=== PATIENT | male | born 1960 | race Caucasian/White ===

== ENCOUNTER 2017-02-10 12:18 | Inpatient (IN) | payer OTHER ==
[2017-02-10 12:53] VITALS: BMI 16.7
--- NOTE | 2017-02-10 14:04 | HP ---
COWS - Scale Resting Pulse: 0= [place] 80 or Below Sweatin= Chills/Flushing Restless Observation: 1= Difficult to Sit Still Pupil Size: 1= Pupils >than Normal Bone or Joint Aches: 2= Severe Diffuse Aches Runny Nose/ Eye Tearin= Runny Nose/Eyes GI Upset > 30mins: 2= Nausea/Diarrhea Tremor Observation: 2= Slight Tremor Visible Yawning Observation: 1= 1-2x During Session Anxiety or Irritability: 2=Irritable/Anxious Goose Flesh Skin: 3=Piloerection COWS Score: 17 CIWA Score - CIWA Score Nausea/Vomitin Muscle Tremors: 3 Anxiety: 4-Mod. Anxious/Guarded Agitation: 1-Slight > Activity Paroxysmal Sweats: 3 Orientation: 0-Oriented Tacttile Disturbances: 2-Mild Itch/Numbness/Burn Auditory Disturbances: 0-None Visual Disturbances: 0-None Headache: 0-None Present CIWA-Ar Total Score: 18 Admission ROS BHS - HPI Chief Complaint: "I want to stop using Xanax, Alcohol, and Heroin. They are destroying me." Pt. is here to Detox from Alcohol, Xanax, and Heroin. Allergies/Adverse Reactions: Allergies Allergy/AdvReac Type Severity Reaction Status Date / Time No Known Drug Allergies Allergy Unknown Verified 07/02/13 16:15 lasagna Allergy Severe Vomiting Uncoded 07/02/13 14:08 NKDA Allergy Uncoded 07/02/13 14:08 History of Present Illness: Pt. is a 56 YO male here to Detox from Alcohol, Xanax, and Heroin. Pt. has had several previous Detox admissions at [facility]. Longest period of sobriety: approx. 2 weeks (11/2016). Exam Limitations: Intoxication - Ebola screening Have you traveled outside of the country in the last 21 days: No Have you had contact with anyone from an Ebola affected area: No Have you been sick,other than usual withdrawal symptoms: No Do you have a fever: No - Review of Systems Constitutional: Chills, Diaphoresis, Fever, Loss of Appetite, Malaise, Night Sweats, Changes in sleep (Takes Seroquel.), Unintentional Wgt. Loss (Lost approx. 40 lbs over last 4 months.) EENT: reports: Nose Congestion, Sinus Pressure, Other (Upper Denture.) Respiratory: reports: SOB with Exertion, Productive cough Cardiac: reports: Palpitations GI: reports: Diarrhea, Nausea, Poor Appetite, Indigestion, Abdominal cramping : reports: No Symptoms Reported Musculoskeletal: reports: Back Pain, Neck Pain Integumentary: reports: Other (Swelling in Left arm where he injects.) Neuro: reports: Headache, Tremors Endocrine: reports: No Symptoms Reported Hematology: reports: No Symptoms Reported Psychiatric: reports: Judgement Intact, Mood/Affect Appropiate, Orientated x3, Anxious, Depressed Other Systems: Reviewed and Negative Patient History - Patient Medical History Hx Anemia: No Hx Asthma: No (Uses Albuterol Inhaler.) Hx Chronic Obstructive Pulmonary Disease (COPD): No Hx Cancer: No Hx Cardiac Disorders: No Hx Congestive Heart Failure: No Hx Hypertension: No Hx Hypercholesterolemia: No Hx Pacemaker: No HX Cerebrovascular Accident: No Hx Seizures: No Hx Dementia: No Hx Diabetes: No Hx Gastrointestinal Disorders: No Hx Liver Disease: No Hx Genitourinary Disorders: No Hx Sexually Transmitted Disorders: No Hx Renal Disease (ESRD): No Hx Thyroid Disease: No Hx Human Immunodeficiency Virus (HIV): No (NEGATIVE HX; Last Tested: approx. 6 months ago.) Hx Hepatitis C: Yes (Diagnosed approx. 3 years ago.) Hx Depression: Yes (On med.) Hx Suicide Attempt: Yes (1998 (Cut wrists, neck). PATINET DENIES CURRENT SI / HI.) Hx Bipolar Disorder: Yes (WITH PANIC ATTACKS) Hx Schizophrenia: No Other Medical History: DENIES. - Patient Surgical History Past Surgical History: No Hx Neurologic Surgery: No Hx Cataract Extraction: No Hx Cardiac Surgery: No Hx Lung Surgery: No Hx Breast Surgery: No Hx Breast Biopsy: No Hx Abdominal Surgery: No Hx Appendectomy: No Hx Cholecystectomy: No Hx Genitourinary Surgery: No Hx Section: No Hx Orthopedic Surgery: No Anesthesia Reaction: No - PPD History Previous Implant?: Yes Documented Results: Negative w/proof Implanted On Prior [facility] Admission?: Yes Date: 07/04/13 Results: 0 MM PPD to be Administered?: Yes - Reproductive History Patient is a Female of Child Bearing Age (11 -55 yrs old): No (PATIENT IS MALE.) - Smoking Cessation Smoking history: Current every day smoker Have you smoked in the past 12 months: Yes Aproximately how many cigarettes per day: 20 Cigars Per Day: 0 Hx Chewing Tobacco Use: No Initiated information on smoking cessation: Yes 'Breaking Loose' booklet given: 02/10/17 (GIVEN ON UNIT.) - Substance & Tx. History Hx Alcohol Use: Yes Hx Substance Use: Yes Substance Use Type: Alcohol, Heroin, Tranquilizers Hx Substance Use Treatment: Yes (Previous Detox admissions at [facility].) - Substances Abused Heroin Route: Injection Frequency: Daily Amount used: 5 bags/day Age of first use: 19 Date of Last Use: 02/09/17 Alprazolam (Xanax) Route: Oral Frequency: Daily Amount used: 2 mg BID Age of first use: 47 Date of Last Use: 02/09/17 Alcohol Route: Oral Frequency: Daily Amount used: 1 P[place]ODKA Age of first use: 19 Date of Last Use: 02/10/17 Family Disease History - Family Disease History Family Disease History: Respiratory: Mother (Asthma, .) Admission Physical Exam [facility] - Vital Signs Vital Signs: Vital Signs - 24 hr 02/10/17 12:46 Temperature 97.5 F L Pulse Rate 74 Respiratory 20 Rate Blood Pressure 104/65 - Physical General Appearance: Yes: No Apparent Distress, Nourished, Appropriately Dressed , Intoxicated, Thin, Tremorous, Anxious HEENTM: Yes: Hearing grossly Normal, Normocephalic, Normal Voice, ROGELIO, Pharynx Normal Respiratory: Yes: Chest Non-Tender, No Respiratory Distress, No Accessory Muscle Use, Wheezing Neck: Yes: No masses,lesions,Nodules, Supple, Trachea in good position Breast: Yes: Breast Exam Deferred Cardiology: Yes: Regular Rhythm, Regular Rate, S1, S2 Abdominal: Yes: Normal Bowel Sounds, Non Tender, Flat, Soft Genitourinary: Yes: Within Normal Limits Back: Yes: Decreased Range of Motion Musculoskeletal: Yes: Gait Steady, Back pain Extremities: Yes: Normal Range of Motion, Non-Tender, Tremors Neurological: Yes: Fully Oriented, Alert, Normal Mood/Affect, Normal Response Integumentary: Yes: Normal Color, Dry, Warm, Track Patel (Noted on Left Forearm , mild erythema and swelling noted.) Lymphatic: Yes: Within Normal Limits - Diagnostic (1) Alcohol dependence with uncomplicated withdrawal Current Visit: Yes Status: Acute (2) Opioid dependence with withdrawal Current Visit: Yes Status: Acute (3) Sedative, hypnotic or anxiolytic dependence with withdrawal, uncomplicated Current Visit: Yes Status: Acute (4) Nicotine dependence Current Visit: Yes Status: Chronic Qualifiers: Nicotine product type: cigarettes Substance use status: uncomplicated Qualified Code(s): F17.210 - Nicotine dependence, cigarettes, uncomplicated (5) Asthma Current Visit: Yes Status: Chronic Qualifiers: Asthma severity: mild intermittent Asthma complication type: uncomplicated Qualified Code(s): J45.20 - Mild intermittent asthma, uncomplicated (6) Abscess of left arm Current Visit: Yes Status: Acute (7) Depression Current Visit: Yes Status: Chronic Qualifiers: Depression Type: unspecified Qualified Code(s): F32.9 - Major depressive disorder, single episode, unspecified (8) Bipolar disorder Current Visit: Yes Status: Chronic Qualifiers: Active/Remission status: remission status unspecified Qualified Code (s): F31.9 - Bipolar disorder, unspecified (9) History of panic attacks Current Visit: Yes Status: Chronic Cleared for Admission BHS - Detox or Rehab [facility] Level of Care: Medically Managed Detox Regimen/Protocol: Methadone/Valium [facility] Breath Alcohol Content Breath Alcohol Content: 0.130 Urine Drug Screen - Results Drug Screen Negative: No Urine Drug Screen Results: OPI-Opiates, BZO-Benzodiazepines
[2017-02-10] MEDS ORDERED: diphenhydrAMINE HCL 50 MG CAPSULE PO PRN (14:49)
[2017-02-10] MEDS ORDERED: P-EPHED 60MG/TRIPROLIDI 2.5MG TABLET PO PRN (14:49)
[2017-02-10] MEDS ORDERED: MAGNESIUM HYDROX 2400MG/30ML ORAL SUSPENSION 30 ML CUP PO PRN (14:49)
[2017-02-10] MEDS ORDERED: ACETAMINOPHEN 325 MG TABLET (FP) PO PRN (14:49)
[2017-02-10] MEDS ORDERED: MENTHOL/PHENOL 1 EACH UD MM PRN (14:49)
[2017-02-10] MEDS ORDERED: MAG HYDROX/AL HYDROX/SIMETH 30 ML UNIT-DOSE CUP PO PRN (14:49)
[2017-02-10] MEDS ORDERED: METHADONE HCL 10 MG TABLET (FOR DETOX USE ONLY) PO ONE ×2 (14:49→23:00)
[2017-02-10] MEDS ORDERED: IBUPROFEN 400 MG TABLET (FP) PO PRN (14:49)
[2017-02-10] MEDS ORDERED: hydrOXYzine PAMOATE 50 MG CAPSULE (FP) PO PRN (14:49)
[2017-02-10] MEDS ORDERED: NICOTINE POLACRILEX 2 MG GUM BUC PRN (14:49)
[2017-02-10] MEDS ORDERED: LOPERAMIDE HCL 2 MG CAPSULE PO PRN (14:49)
[2017-02-10] MEDS ORDERED: diazePAM 5 MG TABLET PO ONE (14:49)
[2017-02-10] MEDS ORDERED: MAGNESIUM CITRATE 300 ML BOTTLE PO PRN (14:49)
[2017-02-10] MEDS: NICOTINE 21 MG/24 HOURS TOPICAL PATCH TD SCH (15:23)
[2017-02-10] MEDS: BACITRACIN 15 GM TUBE TOPICAL OINTMENT TP SCH (15:25)
[2017-02-10 19:10] LABS: URINE APPEARANCE CLEAR; URINE BILIRUBIN NEGATIVE (NEGATIVE); URINE BLOOD NEGATIVE (NEGATIVE); URINE COLOR COLORLESS; URINE GLUCOSE (UA) NEGATIVE (NEGATIVE); URINE KETONE NEGATIVE (NEGATIVE); URINE LEUK ESTERASE NEGATIVE (NEGATIVE); URINE NITRITE NEGATIVE (NEGATIVE); URINE PROTEIN NEGATIVE (NEGATIVE); URINE UROBILINOGEN NEGATIVE mg/dL (0.2-1.0)
[2017-02-10] MEDS: guaiFENesin/D-METHORPHAN HB 10 ML UNIT-DOSE CUPS PO PRN (20:56)
[2017-02-10] MEDS: ALBUTEROL SO4 6.7 GM HFA INHALER IH PRN (20:57)
[2017-02-10] MEDS: SULFAMETHOXAZOLE/TRIMETHOPRIM 800MG/160MG D.S. TABLET PO SCH (22:17)
[2017-02-10] MEDS: THIAMINE HCL 100 MG TABLET (FP) PO SCH (22:17)
[2017-02-10] MEDS: diazePAM 5 MG TABLET PO SCH (22:17)
[2017-02-11] MEDS: diazePAM 5 MG TABLET PO SCH ×3 (05:46→22:15)
--- NOTE | 2017-02-11 09:49 | CONSULT ---
[facility] Psychiatric Consult - Data Date of interview: 02/11/17 Admission source: [facility] Identifying data: Readmission to [facility] for this 56 y/o male seeking detox treatment on for heroin,cocaine,xanax,marijuana and alcohol dependence.Patient is ,a father of five,domiciled,unemployed and supported on SSI benefits. Substance Abuse History: Onset of substance abuse at age 16 for marijuana.Escalated to heroin + alcohol (vodka/beer) at age 19 and xanax at age 32.Daily use of substances.Patient smokes one pack of cigarettes daily since age 16.Last use 02/10/17. Medical History: Hepatitis C. Psychiatric History: Patient reports a history of two psychiatric hospitalizations " in my 20's ".Diagnosed with Bipolar Disorder and managed by psychiatrist Dr Pompa ([facility] in [facility]) with seroquel 400 mg po hs.Mr Hameed states that he is adherent to his OPD care.Last took seroquel prior to this [facility] visit.Patient endorses one suicide attempt in 1986 ( via hanging / saved by uncle). Physical/Sexual Abuse/Trauma History: Patient denies. Additional Comment: Urine Drug Screen Results: OPI-Opiates, BZO- Benzodiazepines.Noted. Mental Status Exam - Mental Status Exam Alert and Oriented to: Time, Place, Person Cognitive Function: Good Patient Appearance: Well Groomed Mood: Hopeful, Euthymic Affect: Appropriate, Normal Range Patient Behavior: Fatigued, Appropriate, Cooperative (well mannered,friendly) Speech Pattern: Clear, Appropriate Voice Loudness: Normal Thought Process: Goal Oriented Thought Disorder: Not Present Hallucinations: Denies Suicidal Ideation: Denies Homicidal Ideation: Denies Insight/Judgement: Poor Sleep: Poorly, Difficulty falling asleep Appetite: Good Muscle strength/Tone: Normal Gait/Station: Normal Psychiatric Findings - Problem List ([place] 1, 2,3) (1) Alcohol dependence with uncomplicated withdrawal Current Visit: Yes Status: Acute (2) Opioid dependence with withdrawal Current Visit: Yes Status: Acute (3) Sedative, hypnotic or anxiolytic dependence with withdrawal, uncomplicated Current Visit: Yes Status: Acute (4) Nicotine dependence Current Visit: Yes Status: Acute Qualifiers: Nicotine product type: cigarettes Substance use status: uncomplicated Qualified Code(s): F17.210 - Nicotine dependence, cigarettes, uncomplicated (5) Bipolar disorder Current Visit: Yes Status: Chronic Qualifiers: Active/Remission status: remission status unspecified Qualified Code (s): F31.9 - Bipolar disorder, unspecified (6) Asthma Current Visit: Yes Status: Chronic Qualifiers: Asthma severity: mild intermittent Asthma complication type: uncomplicated Qualified Code(s): J45.20 - Mild intermittent asthma, uncomplicated - Initial Treatment Plan Initial Treatment Plan: Psychoeducation.Detoxification.Recent pharmacy claims revisited : no data.Will restart seroquel at 200 mg po hs and titrate accordingly.Patient made aware of this strategy (cautious approach in view of potential for drug-drug interaction/oversedation).Side effects /benefits of seroquel are discussed with the patient.He is in agreement with this careplan.Observation.
[2017-02-11 09:52] LABS: MCH 31.4 pg (25.7-33.7); MCHC 32.6 g/dl (32.0-35.9); MEAN CELL VOLUME 96.6 fl (80-96); MEAN PLT VOLUME 7.7 fl (7.5-11.1); PLATELET COUNT 192 K/MM3 (134-434); RDW 14.9 % (11.9-15.9); WHITE BLOOD COUNT 16.2 K/mm3 (4.0-10.0)
[2017-02-11] MEDS ORDERED: METHADONE HCL 10 MG TABLET (FOR DETOX USE ONLY) PO SCH (10:00)
[2017-02-11 10:09] LABS: ALBUMIN 2.8 g/dl (3.4-5.0); ALK PHOS 91 U/L (45-117); ANION GAP 7 (8-16); BILIRUBIN,TOTAL 0.7 mg/dL (0.2-1.0); CALCIUM 8.7 mg/dL (8.5-10.1); CO2 25 mmol/L (21-32); CREATININE 0.9 mg/dL (0.7-1.3); GLUCOSE,RANDOM 98 mg/dL (74-106); SGOT/AST 18 U/L (15-37); SGPT/ALT 24 U/L (12-78); TOT PROT 6.3 g/dl (6.4-8.2)
[2017-02-11] MEDS: SULFAMETHOXAZOLE/TRIMETHOPRIM 800MG/160MG D.S. TABLET PO SCH ×2 (10:23→22:15)
[2017-02-11] MEDS: PRENATAL VITAMINS W/ FOLIC ACID TABLET (FP) PO SCH (10:24)
[2017-02-11] MEDS: NICOTINE 21 MG/24 HOURS TOPICAL PATCH TD SCH (10:26)
[2017-02-11] MEDS: diazePAM 5 MG TABLET PO PRN ×2 (10:27→17:11)
--- NOTE | 2017-02-11 10:49 | EKG ---
Test Reason : Blood Pressure : / mmHG Vent. Rate : 062 BPM Atrial Rate : 062 BPM P-R Int : 156 ms QRS Dur : 080 ms QT Int : 406 ms P-R-T Axes : 066 079 068 degrees QTc Int : 412 ms NORMAL SINUS RHYTHM NORMAL ECG NO PREVIOUS ECGS AVAILABLE Confirmed by HARJEET FLORES, ROSARIO ([id number]) on 02/11/2017 10:49:24 AM Referred By: Confirmed By:ROSARIO COSBY MD
[2017-02-11 11:11] LABS: SICKLE CELL SCREEN NEGATIVE (NEGATIVE)
[2017-02-11] MEDS ORDERED: ALBUTEROL SO4 2.5/IPRATROPIUM 0.5 INH SOL 3 ML VIAL.NEB. NEB PRN (11:51)
--- NOTE | 2017-02-11 11:57 | PN ---
[facility] CIWA - CIWA Score Nausea/Vomitin-Mild Nausea/No Vomiting Muscle Tremors: 3 Anxiety: 5 Agitation: 3 Paroxysmal Sweats: 3 Orientation: 2-Disoriented Date<2 days Tacttile Disturbances: 1-Very Mild Itch/Numbness Auditory Disturbances: 0-None Visual Disturbances: 2-Mild Sensitivity Headache: 0-None Present CIWA-Ar Total Score: 20 BHS COWS - Scale Resting Pulse: 1= [place] 81-100 Sweatin= Chills/Flushing Restless Observation: 1= Difficult to Sit Still Pupil Size: 0= Normal to Room Light Bone or Joint Aches: 2= Severe Diffuse Aches Runny Nose/ Eye Tearin= Runny Nose/Eyes GI Upset > 30mins: 2= Nausea/Diarrhea Tremor Observation of Outstretched Hands: 2= Slight Tremor Visible Yawning Observation: 0= None Anxiety or Irritability: 2=Irritable/Anxious Goose Flesh Skin: 3=Piloerection COWS Score: 16 BHS Progress Note (SOAP) Subjective: Sweating, Lower Back Ache, Tremors, Diarrhea, Anxious. Objective: PT. A & O X 2 (DISORIENTED ABOUT DAY / DATE). PT. OBSERVED AMBULATING ON UNIT. NO ACUTE DISTRESS. PT. DENIES CHEST PAIN. 02/11/17 11:53 Vital Signs Temperature 96.7 F L 02/11/17 09:16 Pulse Rate 88 02/11/17 09:16 Respiratory Rate 18 02/11/17 09:16 Blood Pressure 120/69 02/11/17 09:16 O2 Sat by Pulse Oximetry (%) Laboratory Tests 02/10/17 02/11/17 17:00 06:30 WBC 16.2 H D RBC 4.25 Hgb 13.4 Hct 41.1 MCV 96.6 H MCH 31.4 MCHC 32.6 RDW 14.9 Plt Count 192 D MPV 7.7 Sickle Cell Screen Negative Urine Color Colorless Urine Appearance Clear Urine pH 6.0 Ur Specific [place] <= 1.005 Urine Protein Negative Urine Glucose (UA) Negative Urine Ketones Negative Urine Blood Negative Urine Nitrite Negative Urine Bilirubin Negative Urine Urobilinogen Negative Ur Leukocyte Esterase Negative LABS NOTED. 02/11/17 11:57 02/11/17 15:06 Assessment: 02/11/17 11:54 WITHDRAWAL SYMPTOMS. Plan: CONTINUE DETOX. DUONEB PRN FOR SOB, COUGHING DUE TO ASTHMA. REPEAT CBC TOMORROW AM FOR ELEVATED ADMISSION CBC LEVEL.
[2017-02-11] MEDS: BACITRACIN 15 GM TUBE TOPICAL OINTMENT TP SCH (13:04)
[2017-02-11] MEDS: BACITRACIN 0.9 GM PACKET TP SCH (13:04)
[2017-02-11] MEDS: ALBUTEROL SO4 6.7 GM HFA INHALER IH PRN (20:13)
[2017-02-11] MEDS: QUEtiapine FUMARATE 200 MG TABLET PO SCH (22:15)
[2017-02-11] MEDS: THIAMINE HCL 100 MG TABLET (FP) PO SCH (22:15)
[2017-02-11] MEDS: guaiFENesin/D-METHORPHAN HB 10 ML UNIT-DOSE CUPS PO PRN (22:16)
[2017-02-12] MEDS: SULFAMETHOXAZOLE/TRIMETHOPRIM 800MG/160MG D.S. TABLET PO SCH ×2 (10:20→22:31)
[2017-02-12] MEDS: PRENATAL VITAMINS W/ FOLIC ACID TABLET (FP) PO SCH (10:20)
[2017-02-12] MEDS: BACITRACIN 0.9 GM PACKET TP SCH (10:21)
[2017-02-12] MEDS: diazePAM 5 MG TABLET PO SCH ×2 (10:21→22:31)
[2017-02-12] MEDS: METHADONE HCL 5 MG TABLET (FOR DETOX USE ONLY) PO SCH (10:21)
[2017-02-12] MEDS: NICOTINE 21 MG/24 HOURS TOPICAL PATCH TD SCH (10:22)
--- NOTE | 2017-02-12 11:17 | PN ---
[facility] CIWA - CIWA Score Nausea/Vomitin-No Nausea/No Vomiting Muscle Tremors: 3 Anxiety: 5 Agitation: 4-Moderately Restless Paroxysmal Sweats: 1-Minimal Palms Moist Orientation: 0-Oriented Tacttile Disturbances: 3-Moderate Itch/Numb/Burn Auditory Disturbances: 0-None Visual Disturbances: 0-None Headache: 0-None Present CIWA-Ar Total Score: 16 BHS COWS - Scale Resting Pulse: 2= [place] 101-120 Sweatin= Chills/Flushing Restless Observation: 3= Extraneous Movement Pupil Size: 2= Moderately Dilated Bone or Joint Aches: 4=Acute Joint/Muscle Pain Runny Nose/ Eye Tearin= Nasal Congestion GI Upset > 30mins: 1= Stomach Cramp Tremor Observation of Outstretched Hands: 1= Tremor [place], Not Seen Yawning Observation: 0= None Anxiety or Irritability: 2=Irritable/Anxious Goose Flesh Skin: 0=Smooth Skin COWS Score: 17 S Progress Note (SOAP) Subjective: UNCONTROLLABLE, UNPROVOKED ANGRY OUTBURSTS TOWARDS STAFF DURING THERAPEUTIC ENCOUNTERS, E.G DURING ROUNDS AND NURSING CARES. PT IS UNABLE TO CONTROL HIS EMOTIONS BUT APOLOGIZES WHEN HE RECOLLECTS SELF AT NEXT MOMENT IN TIME. THREATENS TO LEAVE ON/OFF. Objective: 02/12/17 11:17 Vital Signs Temperature 98.0 F 02/12/17 09:32 Pulse Rate 113 H 02/12/17 09:32 Respiratory Rate 20 02/12/17 09:32 Blood Pressure 104/63 02/12/17 09:32 O2 Sat by Pulse Oximetry (%) Laboratory Last Values WBC 16.2 K/mm3 (4.0-10.0) H D 02/11/17 06:30 RBC 4.25 M/mm3 (4.00-5.60) 02/11/17 06:30 Hgb 13.4 GM/dL (11.7-16.9) 02/11/17 06:30 Hct 41.1 % (35.4-49) 02/11/17 06:30 MCV 96.6 fl (80-96) H 02/11/17 06:30 MCH 31.4 pg (25.7-33.7) 02/11/17 06:30 MCHC 32.6 g/dl (32.0-35.9) 02/11/17 06:30 RDW 14.9 % (11.9-15.9) 02/11/17 06:30 Plt Count 192 K/MM3 (134-434) D 02/11/17 06:30 MPV 7.7 fl (7.5-11.1) 02/11/17 06:30 Sickle Cell Screen Negative (NEGATIVE) 02/11/17 06:30 Sodium 137 mmol/L (136-145) 02/11/17 06:30 Potassium 4.1 mmol/L (3.5-5.1) 02/11/17 06:30 Chloride 105 mmol/L (98-107) 02/11/17 06:30 Carbon Dioxide 25 mmol/L (21-32) 02/11/17 06:30 Anion Gap 7 (8-16) L 02/11/17 06:30 BUN 11 mg/dL (7-18) D 02/11/17 06:30 Creatinine 0.9 mg/dL (0.7-1.3) 02/11/17 06:30 Creat Clearance w eGFR > 60 (>60) 02/11/17 06:30 Random Glucose 98 mg/dL (74-106) D 02/11/17 06:30 Calcium 8.7 mg/dL (8.5-10.1) 02/11/17 06:30 Total Bilirubin 0.7 mg/dL (0.2-1.0) D 02/11/17 06:30 AST 18 U/L (15-37) D 02/11/17 06:30 ALT 24 U/L (12-78) D 02/11/17 06:30 Alkaline Phosphatase 91 U/L (45-117) D 02/11/17 06:30 Total Protein 6.3 g/dl (6.4-8.2) L 02/11/17 06:30 Albumin 2.8 g/dl (3.4-5.0) L 02/11/17 06:30 Urine Color Colorless 02/10/17 17:00 Urine Appearance Clear 02/10/17 17:00 Urine pH 6.0 (5.0-8.0) 02/10/17 17:00 Ur Specific [place] <= 1.005 (1.005-1.025) 02/10/17 17:00 Urine Protein Negative (NEGATIVE) 02/10/17 17:00 Urine Glucose (UA) Negative (NEGATIVE) 02/10/17 17:00 Urine Ketones Negative (NEGATIVE) 02/10/17 17:00 Urine Blood Negative (NEGATIVE) 02/10/17 17:00 Urine Nitrite Negative (NEGATIVE) 02/10/17 17:00 Urine Bilirubin Negative (NEGATIVE) 02/10/17 17:00 Urine Urobilinogen Negative mg/dL (0.2-1.0) 02/10/17 17:00 Ur Leukocyte Esterase Negative (NEGATIVE) 02/10/17 17:00 RPR Titer Nonreactive (NONREACTIVE) 02/11/17 06:30 Assessment: 02/12/17 11:18 WITHDRAWAL SX Plan: CONTINUE DETOX THERAPEUTIC REDIRECTIONS.
[2017-02-12] MEDS: ALBUTEROL SO4 6.7 GM HFA INHALER IH PRN (12:44)
[2017-02-12] MEDS: diazePAM 5 MG TABLET PO PRN ×2 (12:44→21:00)
[2017-02-12] MEDS: guaiFENesin/D-METHORPHAN HB 10 ML UNIT-DOSE CUPS PO PRN (12:44)
[2017-02-12] MEDS: THIAMINE HCL 100 MG TABLET (FP) PO SCH (22:31)
[2017-02-12] MEDS: QUEtiapine FUMARATE 200 MG TABLET PO SCH (22:31)
[2017-02-13] MEDS: guaiFENesin/D-METHORPHAN HB 10 ML UNIT-DOSE CUPS PO PRN ×2 (05:13→22:26)
[2017-02-13] MEDS: diazePAM 5 MG TABLET PO PRN ×2 (05:14→13:31)
[2017-02-13] MEDS: ALBUTEROL SO4 2.5/IPRATROPIUM 0.5 INH SOL 3 ML VIAL.NEB. NEB SCH ×4 (10:15→22:26)
[2017-02-13] MEDS: diazePAM 5 MG TABLET PO SCH ×2 (10:33→22:25)
[2017-02-13] MEDS: BACITRACIN 0.9 GM PACKET TP SCH (10:33)
[2017-02-13] MEDS: NICOTINE 21 MG/24 HOURS TOPICAL PATCH TD SCH (10:33)
[2017-02-13] MEDS: PRENATAL VITAMINS W/ FOLIC ACID TABLET (FP) PO SCH (10:33)
[2017-02-13] MEDS: SULFAMETHOXAZOLE/TRIMETHOPRIM 800MG/160MG D.S. TABLET PO SCH ×2 (10:33→22:25)
[2017-02-13] MEDS: METHADONE HCL 5 MG TABLET (FOR DETOX USE ONLY) PO SCH (10:33)
[2017-02-13] MEDS: BUDESONIDE/FORMETEROL FUMARATE 80/4.5 mcg INHALER IH SCH ×2 (11:15→22:26)
--- NOTE | 2017-02-13 13:12 | PN ---
S Progress Note (SOAP) Subjective: ANXIETY,SOB/WHEEZING,FATIGUE. Objective: 02/13/17 13:10 Vital Signs Temperature 99.4 F 02/13/17 09:33 Pulse Rate 96 H 02/13/17 09:33 Respiratory Rate 18 02/13/17 09:33 Blood Pressure 106/66 02/13/17 09:33 O2 Sat by Pulse Oximetry (%) Laboratory Last Values WBC 16.2 K/mm3 (4.0-10.0) H D 02/11/17 06:30 RBC 4.25 M/mm3 (4.00-5.60) 02/11/17 06:30 Hgb 13.4 GM/dL (11.7-16.9) 02/11/17 06:30 Hct 41.1 % (35.4-49) 02/11/17 06:30 MCV 96.6 fl (80-96) H 02/11/17 06:30 MCH 31.4 pg (25.7-33.7) 02/11/17 06:30 MCHC 32.6 g/dl (32.0-35.9) 02/11/17 06:30 RDW 14.9 % (11.9-15.9) 02/11/17 06:30 Plt Count 192 K/MM3 (134-434) D 02/11/17 06:30 MPV 7.7 fl (7.5-11.1) 02/11/17 06:30 Sickle Cell Screen Negative (NEGATIVE) 02/11/17 06:30 Sodium 137 mmol/L (136-145) 02/11/17 06:30 Potassium 4.1 mmol/L (3.5-5.1) 02/11/17 06:30 Chloride 105 mmol/L (98-107) 02/11/17 06:30 Carbon Dioxide 25 mmol/L (21-32) 02/11/17 06:30 Anion Gap 7 (8-16) L 02/11/17 06:30 BUN 11 mg/dL (7-18) D 02/11/17 06:30 Creatinine 0.9 mg/dL (0.7-1.3) 02/11/17 06:30 Creat Clearance w eGFR > 60 (>60) 02/11/17 06:30 Random Glucose 98 mg/dL (74-106) D 02/11/17 06:30 Calcium 8.7 mg/dL (8.5-10.1) 02/11/17 06:30 Total Bilirubin 0.7 mg/dL (0.2-1.0) D 02/11/17 06:30 AST 18 U/L (15-37) D 02/11/17 06:30 ALT 24 U/L (12-78) D 02/11/17 06:30 Alkaline Phosphatase 91 U/L (45-117) D 02/11/17 06:30 Total Protein 6.3 g/dl (6.4-8.2) L 02/11/17 06:30 Albumin 2.8 g/dl (3.4-5.0) L 02/11/17 06:30 Urine Color Colorless 02/10/17 17:00 Urine Appearance Clear 02/10/17 17:00 Urine pH 6.0 (5.0-8.0) 02/10/17 17:00 Ur Specific [place] <= 1.005 (1.005-1.025) 02/10/17 17:00 Urine Protein Negative (NEGATIVE) 02/10/17 17:00 Urine Glucose (UA) Negative (NEGATIVE) 02/10/17 17:00 Urine Ketones Negative (NEGATIVE) 02/10/17 17:00 Urine Blood Negative (NEGATIVE) 02/10/17 17:00 Urine Nitrite Negative (NEGATIVE) 02/10/17 17:00 Urine Bilirubin Negative (NEGATIVE) 02/10/17 17:00 Urine Urobilinogen Negative mg/dL (0.2-1.0) 02/10/17 17:00 Ur Leukocyte Esterase Negative (NEGATIVE) 02/10/17 17:00 RPR Titer Nonreactive (NONREACTIVE) 02/11/17 06:30 LUNGS:BILATERAL MILD TO MODERATE WHEEZING WITH SCATTERED RHONCHI. Assessment: 02/13/17 13:11 WITHDRAWAL SX ASTHMA EXACERBATION Plan: CONTINUE DETOX NEBULIZER TX DIRECTED/ASTHMA CARE
[2017-02-13] MEDS: QUEtiapine FUMARATE 200 MG TABLET PO SCH (22:25)
[2017-02-13] MEDS: THIAMINE HCL 100 MG TABLET (FP) PO SCH (22:25)
[2017-02-14] MEDS ORDERED: ALBUTEROL SO4 2.5/IPRATROPIUM 0.5 INH SOL 3 ML VIAL.NEB. NEB SCH
[2017-02-14 06:41] VITALS: PULSE 82
[2017-02-14] MEDS: guaiFENesin/D-METHORPHAN HB 10 ML UNIT-DOSE CUPS PO PRN (06:52)
[2017-02-14 09:59] VITALS: BP 86/53; TEMP 96.5
[2017-02-14] MEDS ORDERED: diazePAM 5 MG TABLET PO SCH (10:00)
[2017-02-14] MEDS: ALBUTEROL SO4 2.5/IPRATROPIUM 0.5 INH SOL 3 ML VIAL.NEB. NEB SCH (10:00)
[2017-02-14] MEDS ORDERED: METHADONE HCL 10 MG TABLET (FOR DETOX USE ONLY) PO SCH (10:00)
[2017-02-14] MEDS: SULFAMETHOXAZOLE/TRIMETHOPRIM 800MG/160MG D.S. TABLET PO SCH (10:04)
[2017-02-14] MEDS: NICOTINE 21 MG/24 HOURS TOPICAL PATCH TD SCH (10:04)
[2017-02-14] MEDS: BACITRACIN 0.9 GM PACKET TP SCH (10:04)
[2017-02-14] MEDS: BUDESONIDE/FORMETEROL FUMARATE 80/4.5 mcg INHALER IH SCH (10:07)
[2017-02-14] MEDS: PRENATAL VITAMINS W/ FOLIC ACID TABLET (FP) PO SCH (10:07)
--- NOTE | 2017-02-14 11:27 | DS ---
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 PT EVENTUALLY DRESSED UP THIS MORNING AND INSISTED HE IS LEAVING AND USING PROFANITY TOWARDS NURSING STAFF HE REQUESTS TO GET OUT OF HERE. HOWEVER PT IS ALERT O X 3. NAD. LUNGS:CLEAR TO A/P. PT SIGNED OUT AMA Pertinent Past History: ASTHMA HX PANIC ATTACKS HX ABSCESS LEFT ARM - Physical Exam Results Vital Signs: Vital Signs Temperature 96.5 F L 02/14/17 09:59 Pulse Rate 82 02/14/17 09:59 Respiratory Rate 18 02/14/17 09:59 Blood Pressure 86/53 02/14/17 09:59 O2 Sat by Pulse Oximetry (%) Pertinent Admission Physical Exam Findings: WITHDRAWAL SX Laboratory Last Values WBC 16.2 K/mm3 (4.0-10.0) H D 02/11/17 06:30 RBC 4.25 M/mm3 (4.00-5.60) 02/11/17 06:30 Hgb 13.4 GM/dL (11.7-16.9) 02/11/17 06:30 Hct 41.1 % (35.4-49) 02/11/17 06:30 MCV 96.6 fl (80-96) H 02/11/17 06:30 MCH 31.4 pg (25.7-33.7) 02/11/17 06:30 MCHC 32.6 g/dl (32.0-35.9) 02/11/17 06:30 RDW 14.9 % (11.9-15.9) 02/11/17 06:30 Plt Count 192 K/MM3 (134-434) D 02/11/17 06:30 MPV 7.7 fl (7.5-11.1) 02/11/17 06:30 Sickle Cell Screen Negative (NEGATIVE) 02/11/17 06:30 Sodium 137 mmol/L (136-145) 02/11/17 06:30 Potassium 4.1 mmol/L (3.5-5.1) 02/11/17 06:30 Chloride 105 mmol/L (98-107) 02/11/17 06:30 Carbon Dioxide 25 mmol/L (21-32) 02/11/17 06:30 Anion Gap 7 (8-16) L 02/11/17 06:30 BUN 11 mg/dL (7-18) D 02/11/17 06:30 Creatinine 0.9 mg/dL (0.7-1.3) 02/11/17 06:30 Creat Clearance w eGFR > 60 (>60) 02/11/17 06:30 Random Glucose 98 mg/dL (74-106) D 02/11/17 06:30 Calcium 8.7 mg/dL (8.5-10.1) 02/11/17 06:30 Total Bilirubin 0.7 mg/dL (0.2-1.0) D 02/11/17 06:30 AST 18 U/L (15-37) D 02/11/17 06:30 ALT 24 U/L (12-78) D 02/11/17 06:30 Alkaline Phosphatase 91 U/L (45-117) D 02/11/17 06:30 Total Protein 6.3 g/dl (6.4-8.2) L 02/11/17 06:30 Albumin 2.8 g/dl (3.4-5.0) L 02/11/17 06:30 Urine Color Colorless 02/10/17 17:00 Urine Appearance Clear 02/10/17 17:00 Urine pH 6.0 (5.0-8.0) 02/10/17 17:00 Ur Specific [place] <= 1.005 (1.005-1.025) 02/10/17 17:00 Urine Protein Negative (NEGATIVE) 02/10/17 17:00 Urine Glucose (UA) Negative (NEGATIVE) 02/10/17 17:00 Urine Ketones Negative (NEGATIVE) 02/10/17 17:00 Urine Blood Negative (NEGATIVE) 02/10/17 17:00 Urine Nitrite Negative (NEGATIVE) 02/10/17 17:00 Urine Bilirubin Negative (NEGATIVE) 02/10/17 17:00 Urine Urobilinogen Negative mg/dL (0.2-1.0) 02/10/17 17:00 Ur Leukocyte Esterase Negative (NEGATIVE) 02/10/17 17:00 RPR Titer Nonreactive (NONREACTIVE) 02/11/17 06:30 - Treatment Hospital Course: Discharged Condition Good - Medication Discharge Medications: Ambulatory Orders Quetiapine Fumarate [Seroquel -] 400 mg PO HS 02/10/17 - Diagnosis (1) Alcohol dependence with uncomplicated withdrawal Current Visit: Yes Status: Acute (2) Nicotine dependence Current Visit: Yes Status: Acute Qualifiers: Nicotine product type: cigarettes Substance use status: uncomplicated Qualified Code(s): F17.210 - Nicotine dependence, cigarettes, uncomplicated (3) Opioid dependence with withdrawal Current Visit: Yes Status: Acute (4) Sedative, hypnotic or anxiolytic dependence with withdrawal, uncomplicated Current Visit: Yes Status: Acute (5) Asthma Current Visit: Yes Status: Chronic Qualifiers: Asthma severity: mild intermittent Asthma complication type: uncomplicated Qualified Code(s): J45.20 - Mild intermittent asthma, uncomplicated (6) Abscess of left arm Current Visit: Yes Status: Acute - AMA Did Patient Leave Against Medical Advice: Yes (AMA)
[2017-02-15] MEDS ORDERED: METHADONE HCL 5 MG TABLET (FOR DETOX USE ONLY) PO SCH (06:00)
== END 2017-02-14 10:38 | disposition left against medical advice (07) | DRG 770 ==
LOC: YASAS 12:18 → Y3N 13:46
PROVIDERS: ADMIT Internal Medicine; ATTEND Internal Medicine
PROC: HZ2ZZZZ Detoxification Services for Substance Abuse Treatment (ICD-10-PCS; principal; 2017-02-10)
DX: F11.23 Opioid dependence with withdrawal (principal); F10.230 Alcohol dependence with withdrawal, uncomplicated; F17.210 Nicotine dependence, cigarettes, uncomplicated; F31.9 Bipolar disorder, unspecified; F32.9 Major depressive disorder, single episode, unspecified; J45.21 Mild intermittent asthma with (acute) exacerbation; B18.2 Chronic viral hepatitis C; L02.414 Cutaneous abscess of left upper limb; Z91.5 Personal history of self-harm
CPT/HCPCS: 36415; 80053; 81003; 85027; 85660; 86593; 93005; 93010; 94640

== ENCOUNTER 2019-09-25 13:10 | Inpatient (IN) | payer OTHER ==
--- NOTE | 2019-09-25 13:40 | BHS.RME ---
Substance Use & Tx History - Substance Use History Alcohol Substance amount: one pint Vodka, 6 pack x 12 ounce beer Frequency of use: Daily Substance route: Oral Date of Last Use: 09/25/19 Benzodiazepines Substance amount: Xanax 4 mg Frequency of use: Daily Substance route: Oral Date of Last Use: 09/25/19 Opiates (Heroin) Substance amount: 1-2 bags Frequency of use: More than 3 times per week Substance route: Injection (ex: intravenous or skin popping) Date of Last Use: 09/24/19 Physical/Psych/Mental Status - Behavior General Behavior: Decreased activity Eye Contact: Normal - Cooperativeness Cooperativeness: Cooperative - Thinking Thought Processes: Tight Thought content: Future oriented - Physical Health Problems Is patient presently having any pain?: No Does patient presently have any injuries (include location): No Does patient currently have a fever: No Is patient : No CIWA Nausea/Vomitin-Mild Nausea/No Vomiting Muscle Tremors: 4-Moderate,w/Arms Extend Anxiety: 3 Agitation: 0-Normal Activity Paroxysmal Sweats: No Perspiration Orientation: 0-Oriented Tacttile Disturbances: 0-None Auditory Disturbances: 0-None Visual Disturbances: 0-None Headache: 0-None Present CIWA-Ar Total Score: 8
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
[2019-09-25] MEDS ORDERED: IBUPROFEN 400 MG TABLET (FP) PO PRN (16:57)
[2019-09-25] MEDS ORDERED: NICOTINE POLACRILEX 2 MG GUM BUC PRN (16:57)
[2019-09-25] MEDS ORDERED: MAG HYDROX/AL HYDROX/SIMETH 30 ML UNIT-DOSE CUP PO PRN (16:57)
[2019-09-25] MEDS ORDERED: BISMUTH SUBSALICYLATE 524 MG/30 ML UD PO PRN (16:57)
[2019-09-25] MEDS ORDERED: MAGNESIUM HYDROX 2400MG/30ML ORAL SUSPENSION 30 ML CUP PO PRN (16:57)
[2019-09-25] MEDS ORDERED: METHOCARBAMOL 500 MG TABLET PO PRN (16:57)
[2019-09-25] MEDS ORDERED: MENTHOL/PHENOL 1 EACH UD MM PRN (16:57)
[2019-09-25] MEDS ORDERED: MELATONIN 5 MG TABLETS PO PRN (16:57)
[2019-09-25] MEDS ORDERED: MAGNESIUM CITRATE 300 ML BOTTLE PO PRN (16:57)
[2019-09-25] MEDS ORDERED: ACETAMINOPHEN 325 MG TABLET (FP) PO PRN ×2 (16:57)
[2019-09-25 17:27] VITALS: BMI 20.7
[2019-09-25] MEDS ORDERED: ALBUTEROL SO4 2.5/IPRATROPIUM 0.5 INH SOL 3 ML VIAL.NEB. NEB PRN (17:52)
[2019-09-25] MEDS: ALBUTEROL SO4 HFA INHALER IH SCH ×2 (18:23→22:07)
[2019-09-25] MEDS: hydrOXYzine PAMOATE 25 MG CAPSULE (FP) PO SCH ×2 (18:23→22:08)
[2019-09-25] MEDS ORDERED: diazePAM 5 MG TABLET PO ONE (18:30)
[2019-09-25] MEDS ORDERED: ONDANSETRON *ODT* 4 MG TABLET SL ONE (18:30)
[2019-09-25] MEDS: THIAMINE HCL 100 MG TABLET (FP) PO SCH (22:08)
[2019-09-25] MEDS: diazePAM 5 MG TABLET PO SCH (22:08)
[2019-09-26] MEDS: hydrOXYzine PAMOATE 25 MG CAPSULE (FP) PO SCH ×5 (05:57→22:36)
[2019-09-26] MEDS: ALBUTEROL SO4 HFA INHALER IH SCH ×6 (05:57→22:37)
[2019-09-26] MEDS: diazePAM 5 MG TABLET PO SCH ×3 (05:57→22:36)
[2019-09-26 09:18] LABS: HEMATOCRIT 45.1 % (35.4-49); HEMOGLOBIN 15.2 GM/dL (11.7-16.9); MCH 33.4 pg (25.7-33.7); MCHC 33.8 g/dl (32.0-35.9); MEAN CELL VOLUME 98.9 fl (80-96); MEAN PLT VOLUME 7.5 fl (7.5-11.1); PLATELET COUNT 181 K/MM3 (134-434); RBC 4.56 M/mm3 (4.00-5.60); RDW 15.5 % (11.9-15.9); WHITE BLOOD COUNT 4.8 K/mm3 (4.0-10.0)
[2019-09-26 09:28] LABS: ALBUMIN 3.2 g/dl (3.4-5.0); BILIRUBIN,TOTAL 0.3 mg/dL (0.2-1); BLOOD UREA NITROGEN 10.1 mg/dL (7-18); CALCIUM 9.4 mg/dL (8.5-10.1); CREATININE 0.9 mg/dL (0.55-1.3); POTASSIUM 4.4 mmol/L (3.5-5.1)
[2019-09-26] MEDS ORDERED: METHADONE HCL 10 MG TABLET PO ONE (10:05)
--- NOTE | 2019-09-26 10:31 | EKG ---
Test Reason : Blood Pressure : / mmHG Vent. Rate : 049 BPM Atrial Rate : 049 BPM P-R Int : 174 ms QRS Dur : 080 ms QT Int : 468 ms P-R-T Axes : 079 074 070 degrees QTc Int : 422 ms SINUS BRADYCARDIA OTHERWISE NORMAL ECG WHEN COMPARED WITH ECG OF 10-FEB-2017 14:31, NO SIGNIFICANT CHANGE WAS FOUND Confirmed by Cory Rendon MD ([id number]) on 09/26/2019 10:31:01 AM Referred By: VALENTIN SETH,INSTRUMENTATION CHEMIST Confirmed By:Cory Rendon MD
[2019-09-26] MEDS ORDERED: METHADONE 40 MG, METHADONE 20 MG PO ONE (10:45)
[2019-09-26] MEDS: NICOTINE 14 MG/24 HOURS TOPICAL PATCH TD SCH (10:46)
[2019-09-26] MEDS: PRENATAL VITAMINS W/ FOLIC ACID TABLET (FP) PO SCH (10:46)
[2019-09-26] MEDS ORDERED: METHADONE HCL 10 MG TABLET ONE (10:49)
[2019-09-26] MEDS ORDERED: METHADONE HCL 40 MG DISPERSABLE TABLET ONE (10:49)
[2019-09-26] MEDS ORDERED: PNEUMOC 13-VAL CONJ-DIP CRM/PF 0.5 ML DISP.SYRIN IM ONE (12:00)
[2019-09-26] MEDS ORDERED: FLU VACCINE QUAD 60 MCG/0.5 ML (MDV 19-20) IM ONE (12:00)
[2019-09-26] MEDS ORDERED: PNEUMOCOCCAL 23 VACCINE 0.5 ML VIAL IM ONE (12:00)
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
--- NOTE | 2019-09-26 12:26 | PN ---
S CIWA - CIWA Score Nausea/Vomitin Muscle Tremors: 2 Anxiety: 3 Agitation: 2 Paroxysmal Sweats: No Perspiration Orientation: 0-Oriented Tacttile Disturbances: 1-Very Mild Itch/Numbness Auditory Disturbances: 0-None Visual Disturbances: 0-None Headache: 2-Mild CIWA-Ar Total Score: 12 S Progress Note (SOAP) Subjective: alert,irritable,anxious,interrupted sleep,tremor,pain in the body and back Objective: 09/26/19 12:24 Vital Signs Temperature 97.7 F 09/26/19 09:13 Pulse Rate 77 09/26/19 09:13 Respiratory Rate 18 09/26/19 09:13 Blood Pressure 130/78 09/26/19 09:13 O2 Sat by Pulse Oximetry (%) 09/26/19 12:24 Laboratory Last Values WBC 4.8 K/mm3 (4.0-10.0) 09/26/19 07:40 RBC 4.56 M/mm3 (4.00-5.60) 09/26/19 07:40 Hgb 15.2 GM/dL (11.7-16.9) 09/26/19 07:40 Hct 45.1 % (35.4-49) 09/26/19 07:40 MCV 98.9 fl (80-96) H 09/26/19 07:40 MCH 33.4 pg (25.7-33.7) 09/26/19 07:40 MCHC 33.8 g/dl (32.0-35.9) 09/26/19 07:40 RDW 15.5 % (11.9-15.9) 09/26/19 07:40 Plt Count 181 K/MM3 (134-434) 09/26/19 07:40 MPV 7.5 fl (7.5-11.1) 09/26/19 07:40 Sodium 140 mmol/L (136-145) 09/26/19 07:40 Potassium 4.4 mmol/L (3.5-5.1) 09/26/19 07:40 Chloride 107 mmol/L (98-107) 09/26/19 07:40 Carbon Dioxide 29 mmol/L (21-32) 09/26/19 07:40 Anion Gap 4 MMOL/L (8-16) L 09/26/19 07:40 BUN 10.1 mg/dL (7-18) 09/26/19 07:40 Creatinine 0.9 mg/dL (0.55-1.3) 09/26/19 07:40 Est GFR (CKD-EPI)AfAm 110.27 09/26/19 07:40 Est GFR (CKD-EPI)NonAf 95.14 09/26/19 07:40 Random Glucose 81 mg/dL (74-106) 09/26/19 07:40 Calcium 9.4 mg/dL (8.5-10.1) 09/26/19 07:40 Total Bilirubin 0.3 mg/dL (0.2-1) 09/26/19 07:40 AST 47 U/L (15-37) H 09/26/19 07:40 ALT 52 U/L (13-61) 09/26/19 07:40 Alkaline Phosphatase 133 U/L (45-117) H 09/26/19 07:40 Total Protein 7.0 g/dl (6.4-8.2) 09/26/19 07:40 Albumin 3.2 g/dl (3.4-5.0) L 09/26/19 07:40 RPR Titer Nonreactive (NONREACTIVE) 09/26/19 07:40 Assessment: 09/26/19 12:25 withdrawal symptom Plan: continue detox valium regimen,methadone maintenance 60 mgs po daily
[2019-09-26] MEDS: THIAMINE HCL 100 MG TABLET (FP) PO SCH (22:35)
[2019-09-26] MEDS: QUEtiapine FUMARATE 50 MG TABLET PO SCH (22:38)
[2019-09-27] MEDS: ALBUTEROL SO4 HFA INHALER IH SCH ×6 (04:25→22:09)
[2019-09-27] MEDS ORDERED: METHADONE HCL 40 MG DISPERSABLE TABLET ONE (04:34)
[2019-09-27] MEDS ORDERED: METHADONE HCL 10 MG TABLET ONE (04:34)
[2019-09-27] MEDS: diazePAM 5 MG TABLET PO SCH ×2 (05:16→17:33)
[2019-09-27] MEDS: METHADONE 40 MG, METHADONE 20 MG PO SCH (05:16)
[2019-09-27] MEDS: hydrOXYzine PAMOATE 25 MG CAPSULE (FP) PO SCH ×5 (05:16→22:09)
[2019-09-27] MEDS ORDERED: METHADONE HCL 10 MG TABLET PO SCH (06:00)
[2019-09-27] MEDS: NICOTINE 14 MG/24 HOURS TOPICAL PATCH TD SCH (10:22)
[2019-09-27] MEDS: PRENATAL VITAMINS W/ FOLIC ACID TABLET (FP) PO SCH (10:22)
--- NOTE | 2019-09-27 12:14 | PN ---
S CIWA - CIWA Score Nausea/Vomitin-No Nausea/No Vomiting Muscle Tremors: 3 Anxiety: 2 Agitation: 2 Paroxysmal Sweats: 2 Orientation: 0-Oriented Tacttile Disturbances: 0-None Auditory Disturbances: 0-None Visual Disturbances: 0-None Headache: 0-None Present CIWA-Ar Total Score: 9 S Progress Note (SOAP) Subjective: sweats anxiety restless Objective: 09/27/19 12:14 Vital Signs Temperature 97.9 F 09/27/19 09:03 Pulse Rate 71 09/27/19 09:03 Respiratory Rate 18 09/27/19 09:03 Blood Pressure 140/99 09/27/19 09:03 O2 Sat by Pulse Oximetry (%) Laboratory Tests 09/26/19 09/26/19 09/26/19 07:40 07:40 07:40 WBC 4.8 RBC 4.56 Hgb 15.2 Hct 45.1 MCV 98.9 H MCH 33.4 MCHC 33.8 RDW 15.5 Plt Count 181 MPV 7.5 Sodium 140 Potassium 4.4 Chloride 107 Carbon Dioxide 29 Anion Gap 4 L BUN 10.1 Creatinine 0.9 Est GFR (CKD-EPI)AfAm 110.27 Est GFR (CKD-EPI)NonAf 95.14 Random Glucose 81 Calcium 9.4 Total Bilirubin 0.3 AST 47 H ALT 52 Alkaline Phosphatase 133 H Total Protein 7.0 Albumin 3.2 L RPR Titer Nonreactive aaox3 ambulating no acute distress Assessment: 09/27/19 12:14 withdrawals Plan: continue detox d/c in am
[2019-09-27] MEDS: BACITRACIN 15 GM TUBE TOPICAL OINTMENT TP SCH (14:48)
[2019-09-27] MEDS: QUEtiapine FUMARATE 50 MG TABLET PO SCH (22:09)
[2019-09-27] MEDS: THIAMINE HCL 100 MG TABLET (FP) PO SCH (22:09)
[2019-09-27] MEDS: diazePAM 5 MG TABLET PO PRN (22:11)
[2019-09-28] MEDS: ALBUTEROL SO4 HFA INHALER IH SCH ×3 (01:12→11:13)
[2019-09-28] MEDS ORDERED: METHADONE HCL 40 MG DISPERSABLE TABLET ONE (04:30)
[2019-09-28] MEDS ORDERED: METHADONE HCL 10 MG TABLET ONE (04:30)
[2019-09-28] MEDS: METHADONE 40 MG, METHADONE 20 MG PO SCH (05:53)
[2019-09-28] MEDS: hydrOXYzine PAMOATE 25 MG CAPSULE (FP) PO SCH ×2 (05:54→11:14)
[2019-09-28] MEDS ORDERED: diazePAM 5 MG TABLET PO ONE (06:00)
--- NOTE | 2019-09-28 09:31 | DS ---
[facility] Detox Discharge Summary Admission Date: 09/25/19 Discharge Date: 09/28/19 - History Present History: Alcohol Dependence, Cannabis Dependence, Sedative Dependence, MMTP - Physical Exam Results Vital Signs: Vital Signs Temperature 97.9 F 09/28/19 05:50 Pulse Rate 59 L 09/28/19 05:50 Respiratory Rate 18 09/28/19 05:50 Blood Pressure 131/57 L 09/28/19 05:50 O2 Sat by Pulse Oximetry (%) Pertinent Admission Physical Exam Findings: Vital Signs Temperature 97.9 F 09/28/19 05:50 Pulse Rate 59 L 09/28/19 05:50 Respiratory Rate 18 09/28/19 05:50 Blood Pressure 131/57 L 09/28/19 05:50 O2 Sat by Pulse Oximetry (%) Laboratory Tests 09/26/19 09/26/19 09/26/19 07:40 07:40 07:40 WBC 4.8 RBC 4.56 Hgb 15.2 Hct 45.1 MCV 98.9 H MCH 33.4 MCHC 33.8 RDW 15.5 Plt Count 181 MPV 7.5 Sodium 140 Potassium 4.4 Chloride 107 Carbon Dioxide 29 Anion Gap 4 L BUN 10.1 Creatinine 0.9 Est GFR (CKD-EPI)AfAm 110.27 Est GFR (CKD-EPI)NonAf 95.14 Random Glucose 81 Calcium 9.4 Total Bilirubin 0.3 AST 47 H ALT 52 Alkaline Phosphatase 133 H Total Protein 7.0 Albumin 3.2 L RPR Titer Nonreactive aaox3 ambulating no acute distress lungs CTA - Treatment Hospital Course: Detox Protocol Followed, Detoxed Safely, Responded well, Discharged Condition Good, Rehab Referral Accepted - Medication Discharge Medications: Ambulatory Orders Albuterol Sulfate Inhaler - [Ventolin Hfa Inhaler -] 1 - 2 inh PO Q4H 03/09/19 - Diagnosis (1) Alcohol dependence with uncomplicated withdrawal Current Visit: Yes Status: Chronic (2) Asthma Current Visit: Yes Status: Chronic Qualifiers: Asthma severity: mild Asthma persistence: intermittent Asthma complication type: uncomplicated Qualified Code(s): J45.20 - Mild intermittent asthma, uncomplicated (3) Bipolar disorder Current Visit: Yes Status: Chronic Qualifiers: Active/Remission status: remission status unspecified Qualified Code(s): F31.9 - Bipolar disorder, unspecified (4) Cannabis abuse Current Visit: Yes Status: Chronic (5) Cocaine dependence Current Visit: Yes Status: Chronic Qualifiers: Substance use status: uncomplicated Qualified Code(s): F14.20 - Cocaine de pendence, uncomplicated (6) Emphysema lung Current Visit: Yes Status: Chronic (7) Hep C w/o coma, chronic Current Visit: Yes Status: Chronic (8) Insomnia Current Visit: Yes Status: Chronic (9) Methadone maintenance therapy patient Current Visit: Yes Status: Chronic (10) Nicotine dependence Current Visit: Yes Status: Chronic Qualifiers: Nicotine product type: cigarettes Substance use status: uncomplicated Qualified Code(s): F17.210 - Nicotine dependence, cigarettes, uncomplicated (11) Sedative, hypnotic or anxiolytic dependence with withdrawal, uncomplicated Current Visit: Yes Status: Chronic (12) Substance induced mood disorder Current Visit: Yes Status: Chronic (13) Substance-induced sleep disorder Current Visit: No Status: Acute (14) Anxiety disorder Current Visit: No Status: Chronic (15) Bipolar disorder Current Visit: No Status: Chronic (16) Depression Current Visit: No Status: Chronic Qualifiers: Depression Type: unspecified Qualified Code(s): F32.9 - Major depressive disorder, single episode, unspecified (17) Panic disorder Current Visit: No Status: Ruled-out - AMA Did Patient Leave Against Medical Advice: No
[2019-09-28 10:52] VITALS: BP 143/84; PULSE 72; TEMP 97.5
[2019-09-28] MEDS: PRENATAL VITAMINS W/ FOLIC ACID TABLET (FP) PO SCH (11:14)
[2019-09-28] MEDS: NICOTINE 14 MG/24 HOURS TOPICAL PATCH TD SCH (11:14)
[2019-09-28] MEDS: BACITRACIN 15 GM TUBE TOPICAL OINTMENT TP SCH (11:14)
[2019-09-28] MEDS: diazePAM 5 MG TABLET PO PRN (11:17)
== END 2019-09-28 12:20 | disposition other institution (70) | DRG 773 ==
LOC: YASAS 13:10 → Y6N 17:55
PROVIDERS: ADMIT Allergy & Immunology; ATTEND Allergy & Immunology
PROC: HZ2ZZZZ Detoxification Services for Substance Abuse Treatment (ICD-10-PCS; principal; 2019-09-25)
DX: F10.230 Alcohol dependence with withdrawal, uncomplicated (principal); F13.230 Sedative, hypnotic or anxiolytic dependence with withdrawal, uncomplicated; F11.20 Opioid dependence, uncomplicated; F14.20 Cocaine dependence, uncomplicated; F12.20 Cannabis dependence, uncomplicated; F17.210 Nicotine dependence, cigarettes, uncomplicated; F19.282 Other psychoactive substance dependence with psychoactive substance-induced sleep disorder; F19.24 Other psychoactive substance dependence with psychoactive substance-induced mood disorder; F31.9 Bipolar disorder, unspecified; F41.9 Anxiety disorder, unspecified; F41.0 Panic disorder [episodic paroxysmal anxiety]; G47.00 Insomnia, unspecified; J43.8 Other emphysema; J45.20 Mild intermittent asthma, uncomplicated; B18.2 Chronic viral hepatitis C; Z91.5 Personal history of self-harm
CPT/HCPCS: 36415; 80053; 85027; 86593; 90732; 93005; 93010; G0009; Q2036

== ENCOUNTER 2020-03-10 13:14 | Inpatient (IN) | payer OTHER ==
--- NOTE | 2020-03-10 13:01 | BHS.RME ---
Substance Use & Tx History - Substance Use History Alcohol Substance amount: 6 pack beer + 1/2 pint vodka Frequency of use: Daily Date of Last Use: 03/10/20 Xanax Substance amount: street illicit 2mg s tabs Frequency of use: Daily Substance route: Oral Date of Last Use: 03/10/20 Nicotine Substance amount: 3 ciggs Frequency of use: Daily Substance route: Smoking Date of Last Use: 03/10/20 Physical/Psych/Mental Status - Behavior General Behavior: Increased activity (restlessness, agitation) Eye Contact: Normal - Cooperativeness Cooperativeness: Cooperative - Thinking Thought Processes: Tight, Logical, Goal Directed Thought content: Future oriented - Physical Health Problems Is patient presently having any pain?: No Does patient presently have any injuries (include location): No Does patient currently have a fever: No Is patient : No CIWA Nausea/Vomitin-No Nausea/No Vomiting Muscle Tremors: 3 Anxiety: 4-Mod. Anxious/Guarded Agitation: 3 Paroxysmal Sweats: 4-Forehead w/Sweat Beads Orientation: 0-Oriented Tacttile Disturbances: 2-Mild Itch/Numbness/Burn Auditory Disturbances: 0-None Visual Disturbances: 0-None Headache: 0-None Present CIWA-Ar Total Score: 16
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
[2020-03-10] MEDS ORDERED: BISMUTH SUBSALICYLATE 524 MG/30 ML UD PO PRN (14:11)
[2020-03-10] MEDS ORDERED: chlordiazePOXIDE HCL 25 MG CAPSULE PO PRN (14:11)
[2020-03-10] MEDS ORDERED: MAGNESIUM CITRATE 300 ML BOTTLE PO PRN (14:11)
[2020-03-10] MEDS ORDERED: ACETAMINOPHEN 325 MG TABLET (FP) PO PRN (14:11)
[2020-03-10] MEDS ORDERED: MENTHOL/PHENOL 1 EACH UD MM PRN (14:11)
[2020-03-10] MEDS ORDERED: MAGNESIUM HYDROX 2400MG/30ML ORAL SUSPENSION 30 ML CUP PO PRN (14:11)
[2020-03-10] MEDS ORDERED: MAG HYDROX/AL HYDROX/SIMETH 30 ML UNIT-DOSE CUP PO PRN (14:11)
[2020-03-10] MEDS ORDERED: ONDANSETRON *ODT* 4 MG TABLET SL PRN (14:11)
[2020-03-10] MEDS ORDERED: NICOTINE POLACRILEX 2 MG GUM BUC PRN (14:11)
[2020-03-10] MEDS ORDERED: ALBUTEROL SO4 HFA INHALER IH PRN (14:14)
[2020-03-10] MEDS ORDERED: METHADONE HCL 10 MG TABLET PO SCH (14:30)
[2020-03-10 14:45] VITALS: BMI 19.1
[2020-03-10] MEDS ORDERED: METHADONE 40 MG, METHADONE 20 MG PO ONE (15:00)
[2020-03-10 17:00] LABS: HEMATOCRIT 42.3 % (35.4-49); HEMOGLOBIN 14.1 GM/dL (11.7-16.9); MCH 34.3 pg (25.7-33.7); MCHC 33.4 g/dl (32.0-35.9); MEAN CELL VOLUME 102.7 fl (80-96); MEAN PLT VOLUME 7.8 fl (7.5-11.1); PLATELET COUNT 215 K/MM3 (134-434); RBC 4.12 M/mm3 (4.00-5.60); RDW 15.4 % (11.9-15.9); WHITE BLOOD COUNT 6.4 K/mm3 (4.0-10.0)
[2020-03-10 17:12] LABS: ALBUMIN 3.5 g/dl (3.4-5.0); BILIRUBIN,TOTAL 0.5 mg/dL (0.2-1); BLOOD UREA NITROGEN 12.4 mg/dL (7-18); CALCIUM 9.1 mg/dL (8.5-10.1); CREATININE 1.1 mg/dL (0.55-1.3); POTASSIUM 4.6 mmol/L (3.5-5.1); TOT PROT 7.3 g/dl (6.4-8.2)
[2020-03-10] MEDS: hydrOXYzine PAMOATE 25 MG CAPSULE (FP) PO SCH ×2 (18:16→22:32)
[2020-03-10] MEDS: chlordiazePOXIDE HCL 25 MG CAPSULE PO SCH ×2 (18:16→22:31)
[2020-03-10] MEDS: GABAPENTIN 300 MG CAPSULE PO SCH (22:31)
[2020-03-10] MEDS: MELATONIN 5 MG TABLETS PO SCH (22:32)
[2020-03-10] MEDS: THIAMINE HCL 100 MG TABLET (FP) PO SCH (22:32)
[2020-03-10] MEDS: IBUPROFEN 400 MG TABLET (FP) PO PRN (22:39)
[2020-03-11] MEDS ORDERED: METHADONE HCL 10 MG TABLET ONE (04:51)
[2020-03-11] MEDS ORDERED: METHADONE HCL 40 MG DISPERSABLE TABLET ONE (04:52)
[2020-03-11] MEDS: METHADONE 40 MG, METHADONE 20 MG PO SCH (06:06)
[2020-03-11] MEDS: hydrOXYzine PAMOATE 25 MG CAPSULE (FP) PO SCH ×5 (06:07→22:00)
[2020-03-11] MEDS: chlordiazePOXIDE HCL 25 MG CAPSULE PO SCH ×4 (06:09→22:01)
[2020-03-11] MEDS: IBUPROFEN 400 MG TABLET (FP) PO PRN (06:12)
--- NOTE | 2020-03-11 08:01 | PN ---
Teaching Attending Note Name of Resident: Marco Antonio Groves ATTENDING PHYSICIAN STATEMENT I saw and evaluated the patient. I reviewed the resident's note and discussed the case with the resident. I agree with the resident's findings and plan as documented. SUBJECTIVE: OBJECTIVE: ASSESSMENT AND PLAN: I agree with resident's plan for detox.
[2020-03-11] MEDS: NICOTINE 7 MG/24 HOURS TOPICAL PATCH TD SCH (10:51)
[2020-03-11] MEDS: GABAPENTIN 300 MG CAPSULE PO SCH ×2 (10:51→22:00)
[2020-03-11] MEDS: PRENATAL VITAMINS W/ FOLIC ACID TABLET (FP) PO SCH (10:51)
[2020-03-11] MEDS: METHOCARBAMOL 500 MG TABLET PO PRN ×2 (10:55→22:03)
--- NOTE | 2020-03-11 14:04 | PN ---
S CIWA - CIWA Score Nausea/Vomitin Muscle Tremors: 2 Anxiety: 3 Agitation: 3 Paroxysmal Sweats: No Perspiration Orientation: 0-Oriented Tacttile Disturbances: 1-Very Mild Itch/Numbness Auditory Disturbances: 0-None Visual Disturbances: 0-None Headache: 1-Very Mild CIWA-Ar Total Score: 12 S Progress Note (SOAP) Subjective: alert,irritable,anxious,interrupted sleep,tremor,aching ain in the body Objective: 03/11/20 16:22 Vital Signs Temperature 97.1 F L 03/11/20 12:44 Pulse Rate 67 03/11/20 12:44 Respiratory Rate 18 03/11/20 12:44 Blood Pressure 118/64 03/11/20 12:44 O2 Sat by Pulse Oximetry (%) 95 03/11/20 12:44 Assessment: 03/11/20 16:23 withdrawal symptom Plan: continue detox librium regimen,methadone maintenance 60 mgs po daily
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
[2020-03-11] MEDS: IBUPROFEN 600 MG TABLET (FP) PO PRN (19:49)
[2020-03-11] MEDS: THIAMINE HCL 100 MG TABLET (FP) PO SCH (22:00)
[2020-03-11] MEDS ORDERED: busPIRone HCL 5 MG TABLET PO SCH (22:00)
[2020-03-11] MEDS: MELATONIN 5 MG TABLETS PO SCH (22:01)
[2020-03-11] MEDS: ACETAMINOPHEN 325 MG TABLET (FP) PO PRN (22:04)
[2020-03-12] MEDS ORDERED: METHADONE HCL 10 MG TABLET ONE (04:29)
[2020-03-12] MEDS ORDERED: METHADONE HCL 40 MG DISPERSABLE TABLET ONE (04:29)
[2020-03-12] MEDS: METHADONE 40 MG, METHADONE 20 MG PO SCH (05:52)
[2020-03-12] MEDS: chlordiazePOXIDE HCL 25 MG CAPSULE PO SCH ×4 (05:53→22:28)
[2020-03-12] MEDS: hydrOXYzine PAMOATE 25 MG CAPSULE (FP) PO SCH ×5 (05:53→22:28)
[2020-03-12] MEDS: IBUPROFEN 600 MG TABLET (FP) PO PRN ×2 (05:56→19:41)
--- NOTE | 2020-03-12 09:56 | PN ---
S CIWA - CIWA Score Nausea/Vomitin-No Nausea/No Vomiting Muscle Tremors: None Anxiety: 3 Agitation: 0-Normal Activity Paroxysmal Sweats: 3 Orientation: 0-Oriented Tacttile Disturbances: 0-None Auditory Disturbances: 0-None Visual Disturbances: 0-None Headache: 2-Mild CIWA-Ar Total Score: 8 S Progress Note (SOAP) Subjective: c/o sweats, anxiety, and headache. Objective: Vital Signs 03/12/20 03/12/20 06:37 08:36 Temperature 97.7 F 97.3 F L Pulse Rate 58 L 80 Respiratory 18 18 Rate Blood Pressure 108/72 118/78 O2 Sat by Pulse 95 98 Oximetry (%) Laboratory Last Values WBC 6.4 K/mm3 (4.0-10.0) 03/10/20 14:11 RBC 4.12 M/mm3 (4.00-5.60) 03/10/20 14:11 Hgb 14.1 GM/dL (11.7-16.9) 03/10/20 14:11 Hct 42.3 % (35.4-49) 03/10/20 14:11 MCV 102.7 fl (80-96) H 03/10/20 14:11 MCH 34.3 pg (25.7-33.7) H 03/10/20 14:11 MCHC 33.4 g/dl (32.0-35.9) 03/10/20 14:11 RDW 15.4 % (11.9-15.9) 03/10/20 14:11 Plt Count 215 K/MM3 (134-434) 03/10/20 14:11 MPV 7.8 fl (7.5-11.1) 03/10/20 14:11 Sodium 137 mmol/L (136-145) 03/10/20 14:11 Potassium 4.6 mmol/L (3.5-5.1) 03/10/20 14:11 Chloride 102 mmol/L (98-107) 03/10/20 14:11 Carbon Dioxide 27 mmol/L (21-32) 03/10/20 14:11 Anion Gap 8 MMOL/L (8-16) 03/10/20 14:11 BUN 12.4 mg/dL (7-18) 03/10/20 14:11 Creatinine 1.1 mg/dL (0.55-1.3) 03/10/20 14:11 Est GFR (CKD-EPI)AfAm 85.91 03/10/20 14:11 Est GFR (CKD-EPI)NonAf 74.12 03/10/20 14:11 Random Glucose 76 mg/dL (74-106) 03/10/20 14:11 Calcium 9.1 mg/dL (8.5-10.1) 03/10/20 14:11 Total Bilirubin 0.5 mg/dL (0.2-1) 03/10/20 14:11 AST 83 U/L (15-37) H 03/10/20 14:11 ALT 89 U/L (13-61) H 03/10/20 14:11 Alkaline Phosphatase 568 U/L (45-117) H 03/10/20 14:11 Total Protein 7.3 g/dl (6.4-8.2) 03/10/20 14:11 Albumin 3.5 g/dl (3.4-5.0) 03/10/20 14:11 Syphilis Serology Non-reactive (NONREACTIVE) 03/10/20 14:11 COVID-19 (STACY) Not detected (Not Detected) 03/10/20 15:00 Labs noted. Assessment: 03/12/20 09:55 AOX3, in no acute respiratory distress. Full ROM, ambulating in the unit. Withdrawal symptoms. Plan: continue detox.
[2020-03-12] MEDS: PRENATAL VITAMINS W/ FOLIC ACID TABLET (FP) PO SCH (10:30)
[2020-03-12] MEDS: busPIRone HCL 5 MG TABLET PO SCH (10:30)
[2020-03-12] MEDS: GABAPENTIN 300 MG CAPSULE PO SCH ×2 (10:30→22:28)
[2020-03-12] MEDS: ACETAMINOPHEN 325 MG TABLET (FP) PO PRN (10:32)
[2020-03-12] MEDS: METHOCARBAMOL 500 MG TABLET PO PRN (10:32)
[2020-03-12] MEDS: NICOTINE 7 MG/24 HOURS TOPICAL PATCH TD SCH (10:35)
[2020-03-12] MEDS: THIAMINE HCL 100 MG TABLET (FP) PO SCH (22:28)
[2020-03-12] MEDS: MELATONIN 5 MG TABLETS PO SCH (22:28)
[2020-03-13] MEDS ORDERED: chlordiazePOXIDE HCL 10 MG CAPSULE PO PRN
[2020-03-13] MEDS ORDERED: METHADONE HCL 10 MG TABLET ONE (04:33)
[2020-03-13] MEDS ORDERED: METHADONE HCL 40 MG DISPERSABLE TABLET ONE (04:33)
[2020-03-13] MEDS: METHADONE 40 MG, METHADONE 20 MG PO SCH (05:28)
[2020-03-13] MEDS: chlordiazePOXIDE HCL 10 MG CAPSULE PO SCH ×4 (05:29→22:06)
[2020-03-13] MEDS: hydrOXYzine PAMOATE 25 MG CAPSULE (FP) PO SCH ×5 (05:29→22:06)
[2020-03-13] MEDS: IBUPROFEN 600 MG TABLET (FP) PO PRN ×2 (06:51→17:04)
[2020-03-13] MEDS: busPIRone HCL 5 MG TABLET PO SCH (10:02)
[2020-03-13] MEDS: PRENATAL VITAMINS W/ FOLIC ACID TABLET (FP) PO SCH (10:02)
[2020-03-13] MEDS: GABAPENTIN 300 MG CAPSULE PO SCH ×2 (10:02→22:06)
[2020-03-13] MEDS: NICOTINE 7 MG/24 HOURS TOPICAL PATCH TD SCH (10:02)
--- NOTE | 2020-03-13 10:50 | PN ---
[facility] CIWA - CIWA Score Nausea/Vomitin-No Nausea/No Vomiting Muscle Tremors: 1-None Visible, but [place] Anxiety: 1-Mildly Anxious Agitation: 0-Normal Activity Paroxysmal Sweats: 1-Minimal Palms Moist Orientation: 0-Oriented Tacttile Disturbances: 1-Very Mild Itch/Numbness Auditory Disturbances: 0-None Visual Disturbances: 1-Very Mild Sensitivity Headache: 0-None Present CIWA-Ar Total Score: 5 BHS Progress Note (SOAP) Subjective: 59 years old male was admitted on 03/10/20 for alcohol and benzo withdrawal sx management treating with librium detox regiment feels better today requests to be discharged tomorrow instead of estimated discharge date of 03/15/20 mr mariscal prefers returning to methadone maintenance program for behavioral and psychosocial therapies Objective: 03/13/20 10:49 Vital Signs - 24 hr 03/12/20 03/12/20 03/12/20 12:50 17:10 20:36 Temperature 96.1 F L 97.3 F L 97.3 F L Pulse Rate 68 68 75 Respiratory 18 18 18 Rate Blood Pressure 100/70 113/63 107/68 O2 Sat by Pulse 98 95 Oximetry (%) 03/13/20 03/13/20 05:22 08:31 Temperature 96.9 F L 97.1 F L Pulse Rate 60 78 Respiratory 16 18 Rate Blood Pressure 114/70 133/80 O2 Sat by Pulse 96 Oximetry (%) Laboratory Tests 03/10/20 03/10/20 03/10/20 14:11 14:11 14:11 WBC 6.4 RBC 4.12 Hgb 14.1 Hct 42.3 MCV 102.7 H MCH 34.3 H MCHC 33.4 RDW 15.4 Plt Count 215 MPV 7.8 Sodium 137 Potassium 4.6 Chloride 102 Carbon Dioxide 27 Anion Gap 8 BUN 12.4 Creatinine 1.1 Est GFR (CKD-EPI)AfAm 85.91 Est GFR (CKD-EPI)NonAf 74.12 Random Glucose 76 Calcium 9.1 Total Bilirubin 0.5 AST 83 H ALT 89 H Alkaline Phosphatase 568 H Total Protein 7.3 Albumin 3.5 Syphilis Serology Non-reactive COVID-19 (STACY) 03/10/20 15:00 WBC RBC Hgb Hct MCV MCH MCHC RDW Plt Count MPV Sodium Potassium Chloride Carbon Dioxide Anion Gap BUN Creatinine Est GFR (CKD-EPI)AfAm Est GFR (CKD-EPI)NonAf Random Glucose Calcium Total Bilirubin AST ALT Alkaline Phosphatase Total Protein Albumin Syphilis Serology COVID-19 (STACY) Not detected lab noted Assessment: 03/13/20 10:49 alcohol and benzo withdrawal Plan: librium regiment
[2020-03-13] MEDS: THIAMINE HCL 100 MG TABLET (FP) PO SCH (22:07)
[2020-03-13] MEDS: MELATONIN 5 MG TABLETS PO SCH (22:07)
[2020-03-14] MEDS ORDERED: METHADONE HCL 10 MG TABLET ONE (04:23)
[2020-03-14] MEDS ORDERED: METHADONE HCL 40 MG DISPERSABLE TABLET ONE (04:24)
[2020-03-14] MEDS ORDERED: chlordiazePOXIDE HCL 10 MG CAPSULE PO SCH (05:00)
[2020-03-14] MEDS: hydrOXYzine PAMOATE 25 MG CAPSULE (FP) PO SCH (05:33)
[2020-03-14] MEDS: METHADONE 40 MG, METHADONE 20 MG PO SCH (05:33)
[2020-03-14] MEDS: IBUPROFEN 600 MG TABLET (FP) PO PRN (05:36)
[2020-03-14 06:45] VITALS: BP 124/79; PULSE 57; TEMP 98.4
--- NOTE | 2020-03-14 07:43 | PN ---
[facility] Progress Note Note: Vital Signs Temperature 98.4 F 03/14/20 05:27 Pulse Rate 57 L 03/14/20 05:27 Respiratory Rate 16 03/14/20 05:27 Blood Pressure 124/79 03/14/20 05:27 O2 Sat by Pulse Oximetry (%) 95 03/14/20 05:27 Laboratory Tests 03/10/20 03/10/20 03/10/20 14:11 14:11 14:11 WBC 6.4 RBC 4.12 Hgb 14.1 Hct 42.3 MCV 102.7 H MCH 34.3 H MCHC 33.4 RDW 15.4 Plt Count 215 MPV 7.8 Sodium 137 Potassium 4.6 Chloride 102 Carbon Dioxide 27 Anion Gap 8 BUN 12.4 Creatinine 1.1 Est GFR (CKD-EPI)AfAm 85.91 Est GFR (CKD-EPI)NonAf 74.12 Random Glucose 76 Calcium 9.1 Total Bilirubin 0.5 AST 83 H ALT 89 H Alkaline Phosphatase 568 H Total Protein 7.3 Albumin 3.5 Syphilis Serology Non-reactive COVID-19 (STACY) 03/10/20 15:00 WBC RBC Hgb Hct MCV MCH MCHC RDW Plt Count MPV Sodium Potassium Chloride Carbon Dioxide Anion Gap BUN Creatinine Est GFR (CKD-EPI)AfAm Est GFR (CKD-EPI)NonAf Random Glucose Calcium Total Bilirubin AST ALT Alkaline Phosphatase Total Protein Albumin Syphilis Serology COVID-19 (STACY) Not detected SEEN FOR DC ASSESSMENT. CLIENT IS A/O X3 ANXIOUS ABOUT LEAVING, SEEN AMBULATING ON UNIT W/O DIFFICULTY CV- RRR LUNGS- CTAB EXTREMITIES -FROM SCHED FOR 8 AM DC
[2020-03-15] MEDS ORDERED: chlordiazePOXIDE HCL 10 MG CAPSULE PO ONE (05:00)
== END 2020-03-14 07:52 | disposition home or self-care (01) | DRG 773 ==
LOC: YASAS 13:14 → Y3N 14:29
PROVIDERS: ADMIT Allergy & Immunology; ATTEND Allergy & Immunology
PROC: HZ2ZZZZ Detoxification Services for Substance Abuse Treatment (ICD-10-PCS; principal; 2020-03-10)
DX: F10.230 Alcohol dependence with withdrawal, uncomplicated (principal); F13.230 Sedative, hypnotic or anxiolytic dependence with withdrawal, uncomplicated; F11.20 Opioid dependence, uncomplicated; F14.20 Cocaine dependence, uncomplicated; F12.10 Cannabis abuse, uncomplicated; F17.210 Nicotine dependence, cigarettes, uncomplicated; F31.9 Bipolar disorder, unspecified; F41.0 Panic disorder [episodic paroxysmal anxiety]; F19.24 Other psychoactive substance dependence with psychoactive substance-induced mood disorder; J43.9 Emphysema, unspecified; J45.20 Mild intermittent asthma, uncomplicated; K21.9 Gastro-esophageal reflux disease without esophagitis; M54.5 Low back pain; B18.2 Chronic viral hepatitis C; Z62.810 Personal history of physical and sexual abuse in childhood; Z91.5 Personal history of self-harm; Z98.890 Other specified postprocedural states; Z91.018 Allergy to other foods; Z56.0 Unemployment, unspecified
CPT/HCPCS: 36415; 80053; 85027; 86780; U0003

== ENCOUNTER 2020-10-12 11:22 | Inpatient (IN) | payer OTHER ==
[2020-10-12 12:16] VITALS: BMI 19.3
[2020-10-12] MEDS ORDERED: ALBUTEROL SO4 HFA INHALER IH PRN (13:00)
[2020-10-12] MEDS ORDERED: NALOXONE (NARCAN) HCL 4 MG/0.1 ML SPRAY NS PRN (13:01)
[2020-10-12] MEDS ORDERED: BISMUTH SUBSALICYLATE 524 MG/30 ML UD PO PRN (13:01)
[2020-10-12] MEDS ORDERED: MAGNESIUM HYDROX 2400MG/30ML ORAL SUSPENSION 30 ML CUP PO PRN (13:01)
[2020-10-12] MEDS ORDERED: MAGNESIUM CITRATE 300 ML BOTTLE PO PRN (13:01)
[2020-10-12] MEDS ORDERED: MAG HYDROX/AL HYDROX/SIMETH 30 ML UNIT-DOSE CUP PO PRN (13:01)
[2020-10-12] MEDS ORDERED: LORazepam 1 MG TABLET PO PRN (13:01)
[2020-10-12] MEDS ORDERED: ACETAMINOPHEN 325 MG TABLET (FP) PO PRN (13:01)
[2020-10-12] MEDS ORDERED: MENTHOL/PHENOL 1 EACH UD MM PRN (13:01)
[2020-10-12] MEDS ORDERED: ONDANSETRON *ODT* 4 MG TABLET SL PRN (13:01)
[2020-10-12] MEDS ORDERED: hydrOXYzine PAMOATE 25 MG CAPSULE (FP) PO SCH ×2 (14:00→16:45)
[2020-10-12] MEDS: chlordiazePOXIDE HCL 25 MG CAPSULE PO PRN (14:02)
[2020-10-12] MEDS: METHOCARBAMOL 500 MG TABLET PO PRN (14:02)
[2020-10-12] MEDS: NICOTINE 7 MG/24 HOURS TOPICAL PATCH TD SCH (14:06)
[2020-10-12 14:41] LABS: HEMATOCRIT 43.4 % (35.4-49); HEMOGLOBIN 14.7 GM/dL (11.7-16.9); MCH 33.4 pg (25.7-33.7); MCHC 33.9 g/dl (32.0-35.9); MEAN CELL VOLUME 98.5 fl (80-96); MEAN PLT VOLUME 7.3 fl (7.5-11.1); PLATELET COUNT 211 K/MM3 (134-434); RBC 4.41 M/mm3 (4.00-5.60); RDW 15.1 % (11.9-15.9); WHITE BLOOD COUNT 4.7 K/mm3 (4.0-10.0)
[2020-10-12 14:42] LABS: POTASSIUM 4.7 mmol/L (3.5-5.1)
[2020-10-12 14:45] LABS: ALBUMIN 3.8 g/dl (3.4-5.0); CALCIUM 9.7 mg/dL (8.5-10.1)
[2020-10-12 14:49] LABS: CREATININE 0.8 mg/dL (0.55-1.3)
[2020-10-12 14:50] LABS: BILIRUBIN,TOTAL 0.4 mg/dL (0.2-1); TOT PROT 7.5 g/dl (6.4-8.2)
[2020-10-12 15:41] LABS: HIV INTERPRETATION NEGATIVE (NEGATIVE)
[2020-10-12] MEDS ORDERED: LORazepam 2 MG TABLET PO SCH (17:00)
[2020-10-12] MEDS: chlordiazePOXIDE HCL 25 MG CAPSULE PO SCH ×2 (17:54→22:10)
[2020-10-12] MEDS: hydrOXYzine PAMOATE 25 MG CAPSULE (FP) PO PRN (20:05)
[2020-10-12] MEDS ORDERED: MELATONIN 5 MG TABLETS PO SCH (22:00)
[2020-10-12] MEDS: GABAPENTIN 300 MG CAPSULE PO SCH (22:10)
[2020-10-12] MEDS: THIAMINE HCL 100 MG TABLET (FP) PO SCH (22:10)
[2020-10-12] MEDS: IBUPROFEN 400 MG TABLET (FP) PO PRN (22:12)
[2020-10-12] MEDS: MELATONIN 5 MG TABLETS PO PRN (22:15)
[2020-10-13] MEDS: chlordiazePOXIDE HCL 25 MG CAPSULE PO SCH ×4 (05:54→22:23)
[2020-10-13] MEDS ORDERED: METHADONE HCL 10 MG TABLET PO SCH (08:30)
[2020-10-13] MEDS ORDERED: METHADONE HCL 10 MG TABLET ONE (08:37)
[2020-10-13] MEDS ORDERED: METHADONE HCL 40 MG DISPERSABLE TABLET ONE (08:43)
[2020-10-13] MEDS ORDERED: METHADONE HCL 5 MG TABLET ONE (08:43)
[2020-10-13] MEDS: GABAPENTIN 300 MG CAPSULE PO SCH ×2 (09:05→22:25)
[2020-10-13] MEDS: METHADONE 40 MG, METHADONE 10 MG, METHADONE 5 MG PO SCH (09:06)
[2020-10-13] MEDS: hydrOXYzine PAMOATE 25 MG CAPSULE (FP) PO PRN (10:14)
[2020-10-13] MEDS: NICOTINE 7 MG/24 HOURS TOPICAL PATCH TD SCH (10:16)
[2020-10-13] MEDS: PRENATAL VITAMINS W/ FOLIC ACID TABLET (FP) PO SCH (10:16)
[2020-10-13] MEDS: METHOCARBAMOL 500 MG TABLET PO PRN (13:22)
[2020-10-13] MEDS: IBUPROFEN 400 MG TABLET (FP) PO PRN ×2 (13:22→22:25)
[2020-10-13] MEDS: hydrOXYzine PAMOATE 50 MG CAPSULE (FP) PO PRN ×2 (17:35→22:25)
[2020-10-13] MEDS: THIAMINE HCL 100 MG TABLET (FP) PO SCH (22:25)
[2020-10-14] MEDS ORDERED: METHADONE HCL 10 MG TABLET ONE (03:05)
[2020-10-14] MEDS ORDERED: METHADONE HCL 40 MG DISPERSABLE TABLET ONE (03:06)
[2020-10-14] MEDS ORDERED: METHADONE HCL 5 MG TABLET ONE (03:08)
[2020-10-14] MEDS ORDERED: LORazepam 1 MG TABLET PO SCH (05:00)
[2020-10-14] MEDS: METHADONE 40 MG, METHADONE 10 MG, METHADONE 5 MG PO SCH (06:18)
[2020-10-14] MEDS: IBUPROFEN 400 MG TABLET (FP) PO PRN ×2 (06:19→19:08)
[2020-10-14] MEDS: chlordiazePOXIDE HCL 25 MG CAPSULE PO SCH ×4 (06:19→22:21)
[2020-10-14] MEDS: hydrOXYzine PAMOATE 50 MG CAPSULE (FP) PO PRN ×2 (06:23→10:17)
[2020-10-14] MEDS: NICOTINE 7 MG/24 HOURS TOPICAL PATCH TD SCH (10:14)
[2020-10-14] MEDS: GABAPENTIN 300 MG CAPSULE PO SCH ×2 (10:14→22:17)
[2020-10-14] MEDS: PRENATAL VITAMINS W/ FOLIC ACID TABLET (FP) PO SCH (10:15)
[2020-10-14] MEDS: THIAMINE HCL 100 MG TABLET (FP) PO SCH (22:17)
[2020-10-14] MEDS: chlordiazePOXIDE HCL 25 MG CAPSULE PO PRN (22:18)
[2020-10-15] MEDS ORDERED: chlordiazePOXIDE HCL 10 MG CAPSULE PO PRN
[2020-10-15] MEDS ORDERED: LORazepam 0.5 MG TABLET PO PRN
[2020-10-15] MEDS ORDERED: METHADONE HCL 10 MG TABLET ONE (05:00)
[2020-10-15] MEDS ORDERED: LORazepam 0.5 MG TABLET PO SCH (05:00)
[2020-10-15] MEDS ORDERED: METHADONE HCL 40 MG DISPERSABLE TABLET ONE (05:02)
[2020-10-15] MEDS ORDERED: METHADONE HCL 5 MG TABLET ONE (05:03)
[2020-10-15] MEDS: METHOCARBAMOL 500 MG TABLET PO PRN ×3 (06:55→22:09)
[2020-10-15] MEDS: IBUPROFEN 400 MG TABLET (FP) PO PRN ×3 (06:56→22:10)
[2020-10-15] MEDS: METHADONE 40 MG, METHADONE 10 MG, METHADONE 5 MG PO SCH (06:57)
[2020-10-15] MEDS: chlordiazePOXIDE HCL 10 MG CAPSULE PO SCH ×4 (06:57→22:09)
[2020-10-15] MEDS: NICOTINE 7 MG/24 HOURS TOPICAL PATCH TD SCH (09:45)
[2020-10-15] MEDS: GABAPENTIN 300 MG CAPSULE PO SCH ×2 (09:45→22:09)
[2020-10-15] MEDS: PRENATAL VITAMINS W/ FOLIC ACID TABLET (FP) PO SCH (09:45)
[2020-10-15] MEDS: hydrOXYzine PAMOATE 50 MG CAPSULE (FP) PO PRN ×4 (09:46→22:10)
[2020-10-15] MEDS: NICOTINE POLACRILEX 2 MG GUM BUC PRN (19:21)
[2020-10-15] MEDS: THIAMINE HCL 100 MG TABLET (FP) PO SCH (22:09)
[2020-10-15] MEDS: MELATONIN 5 MG TABLETS PO PRN (22:09)
[2020-10-16] MEDS ORDERED: METHADONE HCL 5 MG TABLET ONE (04:19)
[2020-10-16] MEDS ORDERED: METHADONE HCL 40 MG DISPERSABLE TABLET ONE (04:19)
[2020-10-16] MEDS ORDERED: METHADONE HCL 10 MG TABLET ONE (04:19)
[2020-10-16] MEDS ORDERED: LORazepam 0.5 MG TABLET PO ONE (05:00)
[2020-10-16] MEDS: chlordiazePOXIDE HCL 10 MG CAPSULE PO SCH ×2 (06:46→17:13)
[2020-10-16] MEDS: IBUPROFEN 400 MG TABLET (FP) PO PRN (06:47)
[2020-10-16] MEDS: METHADONE 40 MG, METHADONE 10 MG, METHADONE 5 MG PO SCH (06:47)
[2020-10-16] MEDS: GABAPENTIN 300 MG CAPSULE PO SCH ×2 (09:50→22:07)
[2020-10-16] MEDS: PRENATAL VITAMINS W/ FOLIC ACID TABLET (FP) PO SCH (09:51)
[2020-10-16] MEDS: hydrOXYzine PAMOATE 50 MG CAPSULE (FP) PO PRN ×3 (09:51→22:07)
[2020-10-16] MEDS: METHOCARBAMOL 500 MG TABLET PO PRN ×3 (09:51→22:42)
[2020-10-16] MEDS: NICOTINE 7 MG/24 HOURS TOPICAL PATCH TD SCH (09:52)
[2020-10-16] MEDS ORDERED: busPIRone HCL 5 MG TABLET PO PRN (10:48)
[2020-10-16] MEDS: IBUPROFEN 400 MG TABLET (FP) PO SCH ×2 (11:16→22:08)
[2020-10-16] MEDS: ACETAMINOPHEN 325 MG TABLET (FP) PO PRN (17:17)
[2020-10-16] MEDS: NICOTINE POLACRILEX 2 MG GUM BUC PRN (18:22)
[2020-10-16] MEDS: THIAMINE HCL 100 MG TABLET (FP) PO SCH (22:07)
[2020-10-16] MEDS: MELATONIN 5 MG TABLETS PO PRN (22:08)
[2020-10-17] MEDS ORDERED: METHADONE HCL 10 MG TABLET ONE (03:20)
[2020-10-17] MEDS ORDERED: METHADONE HCL 5 MG TABLET ONE (03:22)
[2020-10-17] MEDS ORDERED: METHADONE HCL 40 MG DISPERSABLE TABLET ONE (03:22)
[2020-10-17] MEDS ORDERED: chlordiazePOXIDE HCL 10 MG CAPSULE PO ONE (05:00)
[2020-10-17] MEDS: METHADONE 40 MG, METHADONE 10 MG, METHADONE 5 MG PO SCH (06:08)
[2020-10-17] MEDS: hydrOXYzine PAMOATE 50 MG CAPSULE (FP) PO PRN ×5 (06:16→23:14)
[2020-10-17] MEDS: METHOCARBAMOL 500 MG TABLET PO PRN ×3 (06:17→22:05)
[2020-10-17] MEDS: NICOTINE 7 MG/24 HOURS TOPICAL PATCH TD SCH (10:38)
[2020-10-17] MEDS: GABAPENTIN 300 MG CAPSULE PO SCH ×2 (10:38→22:05)
[2020-10-17] MEDS: PRENATAL VITAMINS W/ FOLIC ACID TABLET (FP) PO SCH (10:39)
[2020-10-17] MEDS: IBUPROFEN 400 MG TABLET (FP) PO SCH ×2 (10:39→22:06)
[2020-10-17] MEDS: ACETAMINOPHEN 325 MG TABLET (FP) PO PRN (19:22)
[2020-10-17] MEDS: THIAMINE HCL 100 MG TABLET (FP) PO SCH (22:05)
[2020-10-18] MEDS ORDERED: METHADONE HCL 10 MG TABLET ONE (03:21)
[2020-10-18] MEDS ORDERED: METHADONE HCL 40 MG DISPERSABLE TABLET ONE (03:21)
[2020-10-18] MEDS ORDERED: METHADONE HCL 5 MG TABLET ONE (03:22)
[2020-10-18] MEDS: METHADONE 40 MG, METHADONE 10 MG, METHADONE 5 MG PO SCH (06:07)
[2020-10-18 07:48] VITALS: TEMP 97.5
[2020-10-18 09:17] VITALS: BP 142/91; PULSE 82
== END 2020-10-18 09:18 | disposition home or self-care (01) | DRG 773 ==
LOC: YASAS 11:22 → Y6N 12:46
PROVIDERS: ADMIT Allergy & Immunology; ATTEND Allergy & Immunology
PROC: HZ2ZZZZ Detoxification Services for Substance Abuse Treatment (ICD-10-PCS; principal; 2020-10-12)
DX: F10.230 Alcohol dependence with withdrawal, uncomplicated (principal); F11.20 Opioid dependence, uncomplicated; F13.20 Sedative, hypnotic or anxiolytic dependence, uncomplicated; F12.10 Cannabis abuse, uncomplicated; F17.210 Nicotine dependence, cigarettes, uncomplicated; F19.282 Other psychoactive substance dependence with psychoactive substance-induced sleep disorder; F19.24 Other psychoactive substance dependence with psychoactive substance-induced mood disorder; F31.9 Bipolar disorder, unspecified; F41.9 Anxiety disorder, unspecified; F41.0 Panic disorder [episodic paroxysmal anxiety]; J45.20 Mild intermittent asthma, uncomplicated; Z62.810 Personal history of physical and sexual abuse in childhood; Z99.89 Dependence on other enabling machines and devices
CPT/HCPCS: 36415; 80053; 85027; 86780; 87389; C9803; U0003